=== PATIENT | female | born 2000 | race Hispanic/Latino ===

== ENCOUNTER 2020-10-16 19:16 | Emergency (ER) | payer SELFPAY ==
[2020-10-16 19:23] VITALS: BP 116/71; PULSE 89; RESP 16; TEMP 36.5; O2SAT 100
[2020-10-16 19:42] LABS: Basophils Percent Auto 0.3 % (0.2-1.2); Eosinophils Absolute Auto 0.1 K/mm3 (0-0.3); Eosinophils Percent Auto 1.3 % (0-4.4); Hematocrit 33.6 % (37.0-47.0); Hemoglobin 10.7 g/dL (12.0-15.0); Immature Granulocyte Absolute 0.02 K/mm3 (0.00-0.031); Immature Granulocyte Percent A 0.3 % (0-0.5); Lymphocytes Absolute Auto 2.19 K/mm3 (0.9-3.2); Mean Corpuscular HGB Conc 31.8 g/dl (32-36); Mean Corpuscular Hemoglobin 27.3 pg (26-34); Mean Corpuscular Volume 85.7 fl (80-100); Monocytes Absolute Auto 0.4 K/mm3 (0.1-0.6); Monocytes Percent Auto 6.1 % (2.6-8.5); Neutrophils Absolute Auto 3.6 K/mm3 (1.3-6.7); Platelet Count Result 196 k/mm3 (150-375); Red Blood Count 3.92 M/mm3 (4.2-5.4); Red Cell Distribution Width 13.7 % (11.5-14.5); White Blood Count 6.3 K/mm3 (4.5-10.0)
--- NOTE | 2020-10-16 20:09 | ED.FEMALEGU ---
HPI - Female Genitourinary General Chief complaint: [employer] Stated complaint: vaginal bleeding since wednesday Time Seen by Provider: 10/16/20 20:07 History of Present Illness HPI Narrative: Misoprostil induced 4 days ago. She has had bleeding since that time. Not more than 1 pad per hour. SHe also has mild cramping. She was not able to make her follow-up appointment so they told her to come here for evaluation. SHe has not noted passage of any tissue. No fever, chills, nausea, vmiting, dizziness, SOB. Related Data Home Medications Medication Instructions Recorded Confirmed No Home Medications 10/16/20 10/16/20 Allergies Allergy/AdvReac Type Severity Reaction Status Date / Time No Known Allergies Allergy Verified 10/16/20 19:27 Review of Systems Review of Systems: All systems reviewed & are unremarkable except as noted in HPI and below Exam Const: General: healthy appearing, no acute distress and alert Nutritional Appearance: well nourished Orientation/consciousness: patient oriented x3 HENMT: Head: normal to inspection Resp: Effort & Inspection: normal respiratory effort Auscultation: clear to auscultation bilaterally Cardio: Rate: regular rate Rhythm: regular rhythm GI: GI Palp: Yes Soft to palpation and No Tenderness to palpation present (GI) : Speculum Exam - Vagina: normal appearance of the vagina Other: tissue in cervix. Minimal bleeding Course Vital Signs Vital signs: Vital Signs Temperature 36.5 C 10/16/20 19:23 Pulse Rate 89 10/16/20 19:23 Respiratory Rate 16 10/16/20 19:23 Blood Pressure 116/71 10/16/20 19:23 Pulse Oximetry 100 10/16/20 19:23 Temperature 37.1 C 10/16/20 21:44 Pulse Rate 97 10/16/20 21:44 Respiratory Rate 16 10/16/20 21:44 Blood Pressure 107/64 10/16/20 21:44 Pulse Oximetry 99 10/16/20 21:44 MDM - Female Genitourinary MDM Narrative Medical decision making narrative: US not available at this time. Patient discussed with OB. They will see her in clinic tomorrow to evaluate for possible D&C. Medical Records Attestation: I reviewed the patient's medical records. Lab Data Attestation: I reviewed the patient's lab results. Result diagrams: 10/16/20 19:33 Labs: Lab Results 10/16/20 10/16/20 10/16/20 Range/Units 19:33 19:33 19:33 WBC 6.3 (4.5-10.0) K/mm3 RBC 3.92 L (4.2-5.4) M/mm3 Hgb 10.7 L (12.0-15.0) g/dL Hct 33.6 L (37.0-47.0) % MCV 85.7 (80-100) fl MCH 27.3 (26-34) pg MCHC 31.8 L (32-36) g/dl RDW 13.7 (11.5-14.5) % Plt Count 196 (150-375) k/mm3 MPV 12.0 H (7.4-10.4) fl Immature Gran % (Auto) 0.3 (0-0.5) % Neut % (Auto) 57.0 (45.5-73.1) % Lymph % (Auto) 35.0 (18.3-44.2) % [place] % (Auto) 6.1 (2.6-8.5) % Eos % (Auto) 1.3 (0-4.4) % Baso % (Auto) 0.3 (0.2-1.2) % Lymph # (Auto) 2.19 (0.9-3.2) K/mm3 [place] # (Auto) 0.4 (0.1-0.6) K/mm3 Eos # (Auto) 0.1 (0-0.3) K/mm3 Baso # (Auto) 0.0 (0.0-0.1) K/mm3 Abs Immat Gran (auto) 0.02 (0.00-0.031) K/mm3 Absolute Neuts (auto) 3.6 (1.3-6.7) K/mm3 Absolute Nucleated RBC 0.0 (0.0-0.012) K/mm3 Nucleated RBC % 0.0 (0.0-0.2) % Beta HCG, Quant 48789.00 mIU/ML Blood Type O Positive Antibody Screen Negative Screen TNP Baby's Blood Type Not Reportable Baby's BELINDA Not Reportable Doses of RhIg Required 0 Discharge Plan Discharge Clinical Impression: Retained tissue Patient Disposition: Home, Self-Care Condition: Stable Instructions: Dilation and Curettage (DC) Patient Language: [place]i Prescriptions: No Action No Home Medications RF: 0 Follow-up/Referrals: Brandyn Cedeno MD [Physician] - PHYSICIAN NOT ON STAFF,NONSTAFF [Non-Staff] -
--- NOTE | 2020-10-16 20:12 | PC.NURSE ---
Physician in to see patient, using plant tech service for assistance with communication. Pt states during conversation that she wanted to ensure everything is ok following an , states that she cannot follow up with the clinic since they were closed, they recommended for her to come to the ED for follow up.
[2020-10-16 21:44] VITALS: BP 107/64; PULSE 97; RESP 16; TEMP 37.1; O2SAT 99
== END 2020-10-16 21:44 | disposition home or self-care (01) ==
LOC: ANHED 21:32
PROVIDERS: Emergency Medicine Emergency Medical Services; Emergency Provider Emergency Medicine
DX: O07.4 Failed attempted termination of pregnancy without complication (principal)
CPT/HCPCS: 36415; 84702; 85025; 85461; 99284